=== PATIENT | female | born 1945 | race Caucasian/White ===

== ENCOUNTER 2017-03-16 11:10 | Inpatient (IN) | payer MEDICARE, MEDICAID ==
[2017-03-16 11:29] VITALS: BMI 35.3
--- NOTE | 2017-03-16 11:34 | ED PDOC ---
Arrival/HPI - General Time Seen by Provider: 03/16/17 11:21 Historian: Patient - History of Present Illness Narrative History of Present Illness (Text): 03/16/17 11:25 Dolores Connelly is a 71 year old female, whose past medical history includes hypertension and diabetes, Alzheimer's/Dementia, presents to the emergency department complaining of chest pain for the past two days. Patient reports the pain radiates to both left and right side of the chest. Patient describes the pain as chest pressure. She also states feeling tired with generalized fatigue. Patient denies shortness of breath, headache, fever, chills cough, nausea, vomiting, diarrhea, diaphoresis, jaw pain, back pain, or other complaints. Family reports that she is getting more agitated at home and are looking into fdc placement. Time/Duration: < week (2 dyas) Symptom Onset: Sudden Symptom Course: Unchanged Quality: Pressure Modifying Factors (Text): worse after eating Associated Symptoms (Text): tired, weakness in legs, and epigastric pain Past Medical History - Provider Review Nursing Documentation Reviewed: Yes Family/Social History - Physician Review Nursing Documentation Reviewed: Yes Family/Social History: Unknown Family HX Allergies/Home Meds Allergies/Adverse Reactions: Allergies No Known Allergies Allergy (Unverified 03/16/17 11:28) Home Medications: Home Meds Medication Instructions Recorded Confirmed Atorvastatin [Lipitor] 40 mg PO DAILY 03/16/17 03/16/17 Clonazepam 0.5 mg PO DAILY 03/16/17 03/16/17 Escitalopram [Lexapro] 20 mg PO DAILY 03/16/17 03/16/17 Levothyroxine [Synthroid] 25 mcg PO DAILY 03/16/17 03/16/17 Lisinopril [Zestril] 30 mg PO DAILY 03/16/17 03/16/17 Multivitamin [Multivitamins] 1 each PO DAILY 03/16/17 03/16/17 Naproxen [Naprosyn Tab] 250 mg PO BID 03/16/17 03/16/17 Perphenazine 8 mg PO DAILY 03/16/17 03/16/17 traZODone [trazodone Hydrochloride] 100 mg PO BID 03/16/17 03/16/17 Review of Systems - Review of Systems Constitutional: Fatigue. absent: Fevers Eyes: absent: Vision Changes ENT: absent: Hearing Changes Respiratory: absent: SOB, Cough, Sputum, Wheezing Cardiovascular: Chest Pain. absent: Palpitations, Calf Pain, Orthopnea, Syncope Gastrointestinal: absent: Abdominal Pain, Constipation, Diarrhea, Nausea, Vomiting Genitourinary Female: absent: Dysuria, Frequency, Hematuria Musculoskeletal: absent: Back Pain Neurological: absent: Headache Endocrine: absent: Diaphoresis Physical Exam Vital Signs Reviewed: Yes Vital Signs Temp Pulse Pulse Resp BP BP Pulse Ox 03/16/17 12:28 69 20 198/86 H 96 03/16/17 11:35 74 137/108 H 03/16/17 11:30 98.3 F 74 27 H 137/108 H 97 03/16/17 11:24 98.3 F 73 20 193/70 H 98 Temperature: Afebrile Blood Pressure: Hypertensive Pulse: Regular Respiratory Rate: Normal Appearance: Positive for: Well-Appearing, Non-Toxic, Comfortable Pain Distress: None Mental Status: Positive for: Alert and Oriented X 3 - Systems Exam Head: Present: Atraumatic, Normocephalic Pupils: Present: PERRL Extroacular Muscles: Present: EOMI Conjunctiva: Present: Normal Mouth: Present: Moist Mucous Membranes Neck: Present: Normal Range of Motion Respiratory/Chest: Present: Clear to Auscultation, Good Air Exchange. No: Respiratory Distress, Accessory Muscle Use Cardiovascular: Present: Regular Rate and Rhythm, Normal S1, S2. No: Murmurs Abdomen: Present: Normal Bowel Sounds. No: Tenderness, Distention, Peritoneal Signs Back: Present: Normal Inspection Upper Extremity: Present: Normal Inspection, NORMAL PULSES (equal bilateral radial pulses). No: Cyanosis, Edema Lower Extremity: Present: Normal Inspection. No: Edema Neurological: Present: GCS=15, CN II-XII Intact, Speech Normal Skin: Present: Warm, Dry, Normal Color. No: Rashes Psychiatric: Present: Alert, Oriented x 3, Normal Insight, Normal Concentration Medical Decision Making ED Course and Treatment: 03/16/17 11:25 Impression: 71 year old female with chest pain for the past two days that radiates to both sides of chest. Differential Diagnosis included but are not limited to: pneumonia vs. pneumothorax vs acs Plan: -- EKG -- Chest X-ray -- Labs -- Aspirin -- Reassess and disposition Progress Notes: EKG: Ordered, reviewed, and independently interpreted the EKG. Rate : 69 BPM Rhythm : NSR Interpretation : No ST-segment elevations or depressions, no T-wave inversions, normal intervals. Comparison : No previous EKG for comparison. 03/16/17 12:20 Chest X-ray: Creator : Tyson Dominguez MD FINDINGS: LUNGS: No active pulmonary disease. PLEURA: No significant pleural effusion identified, no pneumothorax apparent. CARDIOVASCULAR: Normal. OSSEOUS STRUCTURES: No significant abnormalities. VISUALIZED UPPER ABDOMEN: There is focal eventration of the left hemidiaphragm. OTHER FINDINGS: None. IMPRESSION: No active disease. 03/16/17 14:19 Patient has multiple cardiac risk factors and has never had a cardiac workup. Paient accepted by Dr. Courtney-covering medicine circulation analyst today. Family at bedside. Psychiatric consult placed due to worsening agitation at day program. - Lab Interpretations Lab Results: 03/16/17 11:45 03/16/17 11:45 Lab Results 03/16/17 11:45: Sodium 140, Potassium 3.7, Chloride 104, Carbon Dioxide 26, Anion Gap 14, BUN 18, Creatinine 0.7, Est GFR ( Amer) > 60, Est GFR (Non- Af Amer) > 60, Random Glucose 106, Calcium 9.1, Total Bilirubin 0.4, AST 26, ALT 29, Alkaline Phosphatase 115, Total Creatine Kinase 97, Troponin I < 0.01, Total Protein 7.6, Albumin 4.2, Globulin 3.4, Albumin/Globulin Ratio 1.2, Lipase 66 03/16/17 11:45: PT 11.1, INR 1.03, APTT 27.2 03/16/17 11:45: WBC 10.2, RBC 3.82, Hgb 11.8 L, Hct 34.4 L, MCV 90.1, MCH 30.9, MCHC 34.3, RDW 15.4 H, Plt Count 217, MPV 12.5 H, Gran % 63.5, Lymph % (Auto) 24.2, [place] % (Auto) 10.4 H, Eos % (Auto) 1.6, Baso % (Auto) 0.3, Gran # 6.48, Lymph # 2.5, [place] # 1.1 H, Eos # 0.2, Baso # 0.03 I have reviewed the lab results: Yes - RAD Interpretation Radiology Orders: 03/16/17 11:28 CHEST PORTABLE [RAD] Stat Reverberatory Furnace Supervisor: Radiologist - EKG Interpretation Interpreted by ED Physician: Yes Type: 12 lead EKG - Medication Orders Current Medication Orders: Enoxaparin Sodium (Lovenox) 40 mg SC DAILY [facility] PRN Reason: Protocol Last Admin: 03/16/17 14:43 Dose: 40 mg Pantoprazole Sodium (Protonix Ec Tab) 40 mg PO DAILY [facility]IN Last Admin: 03/16/17 14:43 Dose: 40 mg Discontinued Medications Aspirin (Aspirin Chewable) 324 mg PO STAT STA Stop: 03/16/17 11:30 Last Admin: 03/16/17 12:10 Dose: 324 mg - Scribe Statement The provider has reviewed the documentation as recorded by the Scribe 03/16/2017 Evangelina Lopez Provider Scribe Attestation: All medical record entries made by the Scribe were at my direction and personally dictated by me. I have reviewed the chart and agree that the record accurately reflects my personal performance of the history, physical exam, medical decision making, and the department course for this patient. I have also personally directed, reviewed, and agree with the discharge instructions and disposition. Disposition/Present on Arrival - Present on Arrival Any Indicators Present on Arrival: No - Disposition Have Diagnosis and Disposition been Completed?: Yes Diagnosis: Chest pain Disposition: HOSPITALIZED Disposition Time: 11:27 Patient Plan: Observation Condition: FAIR
[2017-03-16 12:06] LABS: BASO # 0.03 K/mm3 (0.0-2.0); BASO % 0.3 % (0.0-3.0); EOS # 0.2 (0.0-0.7); EOS % 1.6 % (1.5-5.0); GRAN # 6.48 (1.4-6.5); GRAN % 63.5 % (50.0-68.0); HEMATOCRIT 34.4 % (36.0-48.0); LYMPH # 2.5 (1.2-3.4); LYMPH % 24.2 % (22.0-35.0); MEAN CELL VOLUME 90.1 fl (80.0-105.0); MEAN CORPUSCULAR HEMOGLOBIN 30.9 pg (25.0-35.0); MEAN CORPUSCULAR HGB CONC 34.3 g/dl (31.0-37.0); MEAN PLATELET VOLUME 12.5 fl (7.0-11.0); MONO # 1.1 (0.1-0.6); MONO % 10.4 % (1.0-6.0); RED CELL DISTRIBUTION WIDTH 15.4 % (11.5-14.5); WHITE BLOOD COUNT 10.2 10^3/ul (4.5-11.0)
[2017-03-16 12:14] LABS: ALB/GLOB RATIO 1.2 (1.1-1.8); ALKALINE PHOSPHATASE 115 U/L (38-133); ALT/SGPT 29 U/L (7-56); AST/SGOT 26 U/L (15-39); BILIRUBIN,TOTAL 0.4 mg/dL (0.2-1.3); BLOOD UREA NITROGEN 18 mg/dL (7-21); CALCIUM 9.1 mg/dL (8.4-10.5); CARBON DIOXIDE 26 mmol/L (21-33); CHLORIDE 104 mmol/L (98-107); GFR AFRICAN-AMERICAN > 60; GLUCOSE,RANDOM 106 mg/dL (70-110); LIPASE 66 U/L (23-300); POTASSIUM 3.7 mmol/L (3.6-5.0); SODIUM 140 mmol/L (132-148); TOTAL PROTEIN 7.6 g/dL (5.8-8.3)
--- NOTE | 2017-03-16 12:16 | RAD ---
HISTORY: chest pain COMPARISON: No prior. FINDINGS: LUNGS: No active pulmonary disease. PLEURA: No significant pleural effusion identified, no pneumothorax apparent. CARDIOVASCULAR: Normal. OSSEOUS STRUCTURES: No significant abnormalities. VISUALIZED UPPER ABDOMEN: There is focal eventration of the left hemidiaphragm. OTHER FINDINGS: None. IMPRESSION: No active disease.
[2017-03-16 12:21] LABS: INR 1.03 (0.93-1.08); PARTIAL THROMBOPLASTIN TIME 27.2 Seconds (23.7-30.8)
[2017-03-16 12:26] LABS: TROPONIN I < 0.01 ng/mL
[2017-03-16] MEDS ORDERED: Levothyroxine 25 MCG TAB PO SCH (14:15)
[2017-03-16] MEDS: Pantoprazole 40 mg EC Tab PO SCH (14:43)
[2017-03-16] MEDS: Enoxaparin 40 mg Syringe SC SCH (14:43)
--- NOTE | 2017-03-16 15:14 | CP.PCM.HP ---
<Liya Glaser - Last Filed: 03/16/17 15:23> History of Present Illness - History of Present Illness History of Present Illness: Internal medicine H & P for Dr. Sammie Glaser, PGY-1 Pt S & E at bedside. 71 YO F w/PMH sig for HTN, DM, Alzheimer's dementia, hx nephrolithiasis, R breast CA s/p surgery admitted for HTN and Chest pain x 2 days. Pt attends adult day care where VS are monitored- pt originally sent to ED 2/2 HTN. Pt reports 1 episode of Right sided chest pain - intermittent, moderate, "pressure ", with radiating to LUE- resolved. Admits to fatigue, KWONG, R neck pain, Right sided UE shaking (remote hx of), spots in vision, blurry vision, cough, rhinorrhea, occasional diarrhea, SOB (resolved), insomonia, LE pain/ paresthesias. Denies N/V/F/C, diaphoresis. PMH: HTN, DM, Alzheimer's dementia, hx nephrolithiasis, R breast CA s/p surgery PSH: Cholecystectomy, hysterectomy, kidney stone removal, R breast surgery All: Seasonal SH: Denies ETOH, tobacco, or illicit drug use PMD: Unknown Present on Admission - Present on Admission Any Indicators Present on Admission: No History of DVT/PE: No History of Uncontrolled Diabetes: No Urinary Catheter: No Decubitus Ulcer Present: No Review of Systems - Review of Systems All systems: reviewed and no additional remarkable complaints except - Constitutional Constitutional: Fatigue, Headache, Weight Gain, Weakness. absent: Chills, Fever - EENT Eyes: Blurred Vision, Change in Vision, Spots in Vision Ears: absent: Dizziness Nose/Mouth/Throat: absent: Sore Throat - Cardiovascular Cardiovascular: Chest Pain. absent: Diaphoresis, Leg Edema, Palpitations - Respiratory Respiratory: Cough - Gastrointestinal Gastrointestinal: Diarrhea (occasional). absent: Abdominal Pain, Constipation, Nausea, Vomiting - Genitourinary Genitourinary: absent: Change in Urinary Stream - Musculoskeletal Musculoskeletal: Neck Pain, Numbness (of extremities), Tingling (of extremities) - Psychiatric Psychiatric: Abnormal Sleep Pattern (insomnia) Past Patient History - Past Social History Smoking Status: Never Smoked - CARDIAC Hx Cardiac Disorders: Yes Hx Hypertension: Yes - PULMONARY Hx Respiratory Disorders: No - NEUROLOGICAL Hx Neurological Disorder: Yes Hx Alzheimer's Disease: Yes - HEENT Hx HEENT Problems: No - RENAL Hx Chronic Kidney Disease: No - ENDOCRINE/METABOLIC Hx Endocrine Disorders: Yes Hx Diabetes Mellitus Type 2: Yes - HEMATOLOGICAL/ONCOLOGICAL Hx Blood Disorders: No - INTEGUMENTARY Hx Dermatological Problems: No - MUSCULOSKELETAL/RHEUMATOLOGICAL Hx Musculoskeletal Disorders: No - GASTROINTESTINAL Hx Gastrointestinal Disorders: Yes Hx Constipation: Yes - GENITOURINARY/GYNECOLOGICAL Hx Genitourinary Disorders: No - PSYCHIATRIC Hx Substance Use: No - SURGICAL HISTORY Hx Surgeries: Yes Hx Section: Yes (x3) Meds Allergies/Adverse Reactions: Allergies Allergy/AdvReac Type Severity Reaction Status Date / Time No Known Allergies Allergy Unverified 03/16/17 11:28 Physical Exam - Constitutional Appears: Non-toxic, No Acute Distress - Head Exam Head Exam: ATRAUMATIC, NORMAL INSPECTION, NORMOCEPHALIC - Eye Exam Eye Exam: EOMI, Normal appearance. absent: Nystagmus - ENT Exam ENT Exam: Mucous Membranes Moist, Normal Exam - Neck Exam Neck exam: Positive for: Full Rom, Normal Inspection. Negative for: Lymphadenopathy, Meningismus, Tenderness - Respiratory Exam Respiratory Exam: Clear to Auscultation Bilateral, NORMAL BREATHING PATTERN. absent: Accessory Muscle Use, Chest Wall Tenderness, Rales, Rhonchi, Wheezes, Respiratory Distress - Cardiovascular Exam Cardiovascular Exam: REGULAR RHYTHM, +S1, +S2 - GI/Abdominal Exam GI & Abdominal Exam: Normal Bowel Sounds, Soft. absent: Tenderness - Extremities Exam Extremities exam: Positive for: normal inspection. Negative for: tenderness - Neurological Exam Neurological exam: Alert, CN II-XII Intact - Psychiatric Exam Psychiatric exam: Normal Affect, Normal Mood - Skin Skin Exam: Dry, Intact, Normal Color, Warm Results - Vital Signs Recent Vital Signs: Last Vital Signs Temp 98.3 F 03/16/17 11:30 Pulse 70 03/16/17 14:59 Resp 20 03/16/17 14:59 BP 166/78 H 03/16/17 14:59 Pulse Ox 98 03/16/17 14:59 - Labs Result Diagrams: 03/16/17 11:45 03/16/17 11:45 Assessment & Plan - Assessment and Plan (Free Text) Assessment: 71 YO F w/PMH sig for HTN, DM, Alzheimer's dementia, hx nephrolithiasis, R breast CA s/p surgery admitted for HTN and Chest pain x 2 days, currently CP resolved, continues with symptoms of HTN - KWONG, vision changes Plan: Chest pain EKG -NSR CXR - NAD Trops neg x 1 FU serial trops/EKGs FU A1c FU CKP Cont home meds: Lipitor Given ASA x 1 Cardiology consulted HTN BP improved - 166/74 Cont home med: Lisinopril clonidine PRN Monitor DM ISS Accuchecks Diabetic/HHD Alzheimer's dementia Psych consulted Hypothyroidism FU FT4 FU TSH Cont home med: Synthyroid Depression/insomnia Cont home med: Lexapro, trazodone, clonazepam GI/DVT ppx Protonix Lovenox TEDs SCDs Dispo Admit to tele VS as per protocol OOBTC PT HHD/Mod-CCHO diet Will DW attending Jailyn, PGY-1 - Date & Time Date: 03/16/17 Time: 15:13 Decision To Admit - Pt Status Changed To: Hospital Disposition Of: Observation - . Bed Request Type: Telemetry Admitting Physician: Byron Courtney <Byron Courtney - Last Filed: 04/08/17 22:12> Results - Vital Signs Recent Vital Signs: Last Vital Signs Temp 98.2 F 03/20/17 07:40 Pulse 66 03/20/17 07:40 Resp 20 03/20/17 07:40 BP 116/69 03/20/17 10:22 Pulse Ox 95 03/20/17 07:40 - Labs Result Diagrams: 03/19/17 07:40 03/19/17 07:40 Attending/Attestation - Attestation I have personally seen and examined this patient.: Yes I have fully participated in the care of the patient.: Yes I have reviewed all pertinent clinical information: Yes
[2017-03-16 16:31] LABS: CHOLESTEROL 90 mg/dL (130-200)
--- NOTE | 2017-03-16 16:36 | CARD ---
APPROVED REPORT EKG Measurement Heart [id number] <Conclusion> Normal sinus rhythm Normal ECG
[2017-03-16 16:45] LABS: TROPONIN I < 0.01 ng/mL
[2017-03-16 17:08] LABS: FREE T4 1.2 ng/dL (0.78-2.19); T4 7.8 ug/dL (5.5-11.0)
[2017-03-16 17:21] LABS: THYROID STIMULATING HORMONE 2.74 mIU/mL (0.46-4.68)
[2017-03-16] MEDS: Insulin Reg-LOW-Coverage SC SCH ×2 (17:40→21:27)
[2017-03-16 21:39] LABS: TROPONIN I < 0.01 ng/mL
[2017-03-16] MEDS ORDERED: Pneumococcal 23-Valent Vaccine IM ONE (21:47)
[2017-03-17 01:06] LABS: TROPONIN I < 0.01 ng/mL
--- NOTE | 2017-03-17 04:25 | CON ---
DATE: 03/16/2017 HISTORY OF PRESENT ILLNESS: The patient is a 71-year-old woman who presents with agitation. The patient has a long history of Alzheimer's with dementia. She was noted by her caretakers to be increasingly agitated. The patient's past medical history besides Alzheimer's reveals a history of hypertension and hypercholesterolemia with borderline diabetes mellitus. No previous cardiac history is noted. The patient admits to diffuse body aches. SOCIAL HISTORY: Denies smoking. REVIEW OF SYSTEMS: Besides agitation includes atypical chest pain without shortness of breath. PHYSICAL EXAMINATION: VITAL SIGNS: Blood pressure 166/78, heart rate in the 70s. NECK: Negative JVD. LUNGS: Without rales. HEART: S1, S2. EXTREMITIES: Without edema. EKG is unremarkable. Hemoglobin is 11.8. Chemistries revealed a first troponin to be negative. IMPRESSION: 1. Increasing agitation. 2. Atypical chest pain. 3. Hypertension. 4. Hypercholesterolemia. 5. Questionable history of diabetes mellitus. Given these findings, there is no evidence for acute coronary syndrome. Her blood pressure is better on clonidine. Psychiatry has been consulted for adjusting her dementia and Alzheimer's medications. Ferny Marquez MD
[2017-03-17] MEDS: Levothyroxine 25 MCG TAB PO SCH (05:08)
--- NOTE | 2017-03-17 07:36 | CP.PCM.PN ---
Addendum entered and electronically signed by Liya Glaser DO 03/19/17 12:36: Physical Exam - Constitutional Appears: Non-toxic, No Acute Distress - Head Exam Head Exam: ATRAUMATIC, NORMAL INSPECTION, NORMOCEPHALIC - Eye Exam Eye Exam: EOMI, Normal appearance. absent: Nystagmus - ENT Exam ENT Exam: Mucous Membranes Moist, Normal Exam - Neck Exam Neck exam: Positive for: Full Rom, Normal Inspection. Negative for: Lymphadenopathy, Meningismus, Tenderness - Respiratory Exam Respiratory Exam: Clear to Auscultation Bilateral, NORMAL BREATHING PATTERN. absent: Accessory Muscle Use, Chest Wall Tenderness, Rales, Rhonchi, Wheezes, Respiratory Distress - Cardiovascular Exam Cardiovascular Exam: REGULAR RHYTHM, +S1, +S2 - GI/Abdominal Exam GI & Abdominal Exam: Normal Bowel Sounds, Soft. absent: Tenderness - Extremities Exam Extremities exam: Positive for: normal inspection. Negative for: tenderness - Neurological Exam Neurological exam: Alert, Awake, CN II-XII Intact; shaking of RUE decreased - Psychiatric Exam Psychiatric exam: Normal Affect, Normal Mood - Skin Skin Exam: Dry, Intact, Normal Color, Warm Original Note: <Liya Glaser - Last Filed: 03/17/17 09:25> Subjective - Date & Time of Evaluation Date of Evaluation: 03/17/17 Time of Evaluation: 06:30 - Subjective Subjective: Internal medicine progress note for Dr. Sammie Glaser, PGY-1 Pt S & E at bedside. Pt reports KWONG overnight, continues with R sided neck pain, now with concerns regarding skin changes over B/L LE. Denies N/V/F/C, SOB, CP, ab pain. Tolerating diet. Objective - Vital Signs/Intake and Output Vital Signs (last 24 hours): Temp Pulse Resp BP Pulse Ox 97.8 F 65 20 178/79 H 98 03/17/17 05:30 03/17/17 05:30 03/17/17 05:30 03/17/17 05:30 03/17/17 05:30 Intake and Output: 03/17/17 03/17/17 06:59 18:59 Intake Total 120 Balance 120 - Medications Medications: Current Medications Acetaminophen (Tylenol 325mg Tab) 650 mg PO Q6H PRN PRN Reason: Pain, moderate (4-7) Last Admin: 03/17/17 05:21 Dose: 650 mg Aspirin (Ecotrin) 81 mg PO DAILY [facility] Atorvastatin Calcium (Lipitor) 40 mg PO DIN [facility] Last Admin: 03/16/17 21:26 Dose: 40 mg Clonazepam (Klonopin) 0.5 mg PO DAILY [facility] PRN Reason: Protocol Clonidine HCl (Catapres) 0.1 mg PO Q6H PRN PRN Reason: Systolic Blood Pressure Last Admin: 03/17/17 05:20 Dose: 0.1 mg Enoxaparin Sodium (Lovenox) 40 mg SC DAILY [facility] PRN Reason: Protocol Last Admin: 03/16/17 14:43 Dose: 40 mg Escitalopram Oxalate (Lexapro) 20 mg PO DAILY [facility] Insulin Human Regular (Humulin R Low) 0 units SC ACHS [facility] PRN Reason: Protocol Last Admin: 03/16/17 21:27 Dose: Not Given Levothyroxine Sodium (Synthroid) 25 mcg PO 0600 [facility] Last Admin: 03/17/17 05:08 Dose: 25 mcg Losartan Potassium (Cozaar) 100 mg PO DAILY [facility] Metoprolol Tartrate (Lopressor) 25 mg PO BRKDIN [facility] Multivitamins (Thera Tab) 1 tab PO DAILY [facility] Pantoprazole Sodium (Protonix Ec Tab) 40 mg PO DAILY [facility] Last Admin: 03/16/17 14:43 Dose: 40 mg Perphenazine (Perphenazine) 8 mg PO DAILY [facility] Trazodone HCl (Desyrel) 100 mg PO DAILY [facility] - Labs Labs: PT 11.1 Seconds (9.9-11.8) 03/16/17 11:45 INR 1.03 (0.93-1.08) 03/16/17 11:45 APTT 27.2 Seconds (23.7-30.8) 03/16/17 11:45 Assessment and Plan - Assessment and Plan (Free Text) Assessment: 71 YO F w/PMH sig for HTN, DM, Alzheimer's dementia, hx nephrolithiasis, R breast CA s/p surgery admitted for HTN and Chest pain x 2 days, denies CP overnight, KWONG overnight. Plan: Chest pain- resolved No EKG changes Trops neg x 4 A1c 6.1 CKP WNL FU Folate FU B12 FU UDS Cont home meds: Lipitor Cardiology following- likely not ACS HTN HTN overnight- given clonidine x 1 Cont home med: Lisinopril clonidine PRN Monitor DM ISS Accuchecks Diabetic/HHD Alzheimer's dementia Psych following Hypothyroidism FT4 1.2 TSH 2.74 T4 7.8 Cont home med: Synthyroid Depression/insomnia Cont home med: Lexapro, trazodone, clonazepam GI/DVT ppx Protonix Lovenox TEDs SCDs Dispo OOBTC PT HHD/Mod-CCHO diet Will DW attending Jailyn, PGY-1 <Byron Courtney U - Last Filed: 04/08/17 22:13> Objective - Vital Signs/Intake and Output Vital Signs (last 24 hours): Temp Pulse Resp BP Pulse Ox 98.2 F 66 20 116/69 95 03/20/17 07:40 03/20/17 07:40 03/20/17 07:40 03/20/17 10:22 03/20/17 07:40 - Labs Labs: 03/19/17 07:40 03/19/17 07:40 PT 11.1 Seconds (9.9-11.8) 03/16/17 11:45 INR 1.03 (0.93-1.08) 03/16/17 11:45 APTT 27.2 Seconds (23.7-30.8) 03/16/17 11:45 Attending/Attestation - Attestation I have personally seen and examined this patient.: Yes I have fully participated in the care of the patient.: Yes I have reviewed all pertinent clinical information, including history, physical exam and plan: Yes
--- NOTE | 2017-03-17 08:05 | HP ---
HISTORY OF PRESENT ILLNESS: The patient is a 71-year-old [place]ese-speaking obese female who was brought into the emergency room by the EMS, [facility]. The patient reported chest pain radiating to left arm and neck pain. The patient was sent from the day care [place] today. According to the ER physician evaluation, the patient came to the emergency room by ambulance complaining of chest pain for 2 days, radiating to the left and right side of the chest. Described chest pressure with generalized fatigue. REVIEW OF SYSTEMS: A 13 System review was done, pertinent positive and negative dictated above. CODE STATUS: FULL CODE. HEIGHT: 4 feet 11 inches. WEIGHT: 175. BMI: 35. LIVING WILL/ADVANCE DIRECTIVE: None. HOME MEDICATIONS: 1. Multivitamin 1 tablet daily. 2. Trazodone 100 mg twice a day. 3. Naprosyn 250 mg twice a day. 4. Perphenazine 8 mg daily. 5. Klonopin 0.5 mg daily. 6. Lipitor 40 mg daily. 7. Zestril 30 mg daily/. 8. Synthroid 25 mcg daily. 9. Lexapro 20 mg daily. SOCIAL HISTORY: Negative for substance abuse. Negative for alcohol abuse. Negative for smoking. Negative for communicable transmissible disease. MENSTRUAL HISTORY: Postmenopausal. PAST MEDICAL AND SURGICAL HISTORY: History of questionable insomnia, history of depression, history of anxiety, history of dyslipidemia, history of hypertension, history of hypothyroidism. Patient's past medical history is also significant for hypertension, history of type 2 diabetes, history of constipation, history of Alzheimer's disease, history of x3. PHYSICAL EXAMINATION: GENERAL: The patient was seen in room 262, bed 2. The patient is seen lying in the bed. VITAL SIGNS: T-max is 98.3. Telemetry shows sinus rhythm, heart rate 69-74, blood pressure 193/70, 137/108, 198/86 166/76 and 166/84, respirations 20. O2 sat is 97%-98%. HEENT: Head examination normocephalic and atraumatic. Shows pink conjunctivae. Anicteric sclerae. No oropharyngeal lesion. No neck rigidity. CHEST: Kyphosis. LUNGS: Shows no rales, crackles or wheezing. CARDIOVASCULAR: S1 and S2, regular rhythm. ABDOMEN: Soft, protuberant. Positive bowel sound. GENITALIA: Female. RECTAL: Deferred. EXTREMITIES: Shows no pitting edema. No calf tenderness and no Angelo's signs. NEUROLOGIC: The patient is alert, awake and responsive. Is able to say her name, able to follow simple commands. MUSCULOSKELETAL: Shows an elevated body mass index. DIAGNOSTIC DATA: The patient's diagnostic data was reviewed. The patient was seen and examined in room 262 and bed 1. The patient has been moved from her original room. DIAGNOSTICS: WBCs 10.2, hemoglobin/hematocrit 11.8 and 34.4 and platelet 217. PT/PTT is normal. Chemistry shows random glucose of 106 and 102. LFTs are normal. Troponin is negative. Cholesterol 90, triglyceride 34, LDL less than 30, HDL 55. TSH 2.74 and thyroxine 7.8. The patient's chest x-ray was reported to be no active disease. EKG shows normal sinus rhythm rate baseline artifact. No old EKG available for comparison. The patient was seen in the emergency room by the ER physician. The patient was given Lovenox 40 subcutaneous. The patient was given Protonix. Aspirin 324 was given. The patient denies to be hospitalized. IMPRESSION: 1. Chest pain, etiology undetermined. 2. Transiently uncontrolled hypertension. 3. History of Alzheimer's dementia. 4. History of depression, history of insomnia, history of hypothyroidism, history of hypertension, and history of dyslipidemia. 5. Normocytic anemia. 6. History of obesity. 7. History of anxiety. PLAN: At this time, the patient has been ordered serial labs. The patient has been ordered hemoglobin A1c, cardiology consultation has been requested. The patient has been ordered a psychiatry consultation from the ER. The patient is started on Cozaar 50 mg daily, Desyrel 100 mg daily, aspirin 81 mg daily, regular insulin sliding scale coverage, Klonopin 0.5 mg daily, Lexapro 20 mg daily, Lipitor 40 mg daily, Lopressor 25 mg twice a day, Lovenox 40 mg subcutaneous daily, perphenazine is resumed at 8 mg daily, Protonix 40 mg daily, Synthroid 25 mcg daily, Tylenol p.r.n. Repeat EKG. Heart healthy diet, out of bed, GABINO stockings has been ordered. The patient has been ordered fingerstick blood sugar. SCDs ordered. Physical therapy evaluation ordered. At present, the patient is seen in room 262, bed 1. The patient's further management will be dependent upon the patient's clinical condition, hemodynamic status and as per the patient response to therapeutic intervention, as per the patient's diagnostic test results and as per recommendation by cardiology after evaluation. Dictated and electronically signed, not read. Byron Courtney MD
[2017-03-17] MEDS: Insulin Reg-LOW-Coverage SC SCH ×3 (08:32→16:10)
[2017-03-17] MEDS ORDERED: Non Formulary Medication (Multivitamin [Multivitamins] 1 EACH) PO SCH (10:00)
--- NOTE | 2017-03-17 10:05 | CT ---
PROCEDURE: CT HEAD WITHOUT CONTRAST. HISTORY: ???dementia COMPARISON: None available. TECHNIQUE: Axial computed tomography images were obtained through the head/brain without intravenous contrast. Radiation dose: Total exam DLP = 756 mGy-cm. This CT exam was performed using one or more of the following dose reduction techniques: Automated exposure control, adjustment of the mA and/or kV according to patient size, and/or use of iterative reconstruction technique. FINDINGS: HEMORRHAGE: No intracranial hemorrhage. BRAIN: No mass effect or edema. No atrophy or chronic microvascular ischemic changes. VENTRICLES: Unremarkable. No hydrocephalus. CALVARIUM: Unremarkable. PARANASAL SINUSES: Unremarkable as visualized. No significant inflammatory changes. MASTOID AIR CELLS: Unremarkable as visualized. No inflammatory changes. OTHER FINDINGS: None. IMPRESSION: No acute findings
[2017-03-17] MEDS: Enoxaparin 40 mg Syringe SC SCH (11:05)
[2017-03-17] MEDS: Pantoprazole 40 mg EC Tab PO SCH (11:05)
[2017-03-17] MEDS: Multivitamin Therapeutic Tab PO SCH (11:06)
[2017-03-17] MEDS: POLYETHYLENE GLYCOL 3350 17 GM/Dose PACKET PO SCH ×2 (11:06→17:21)
--- NOTE | 2017-03-17 11:42 | CARD ---
APPROVED REPORT EKG Measurement Heart [id number] ID [id number] <Conclusion> Normal sinus rhythm Normal ECG
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
[2017-03-17 17:29] LABS: FOLATE > 20.0 ng/mL
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
--- NOTE | 2017-03-17 21:18 | PN ---
DATE: 03/17/2017 CARDIOLOGY FOLLOWUP SUBJECTIVE: The patient denies chest pain. PHYSICAL EXAMINATION: VITAL SIGNS: Blood pressure 109/83 and heart rates in the 50s. NECK: Negative JVD. HEART: S1 and S2. LUNGS: Without rales. EXTREMITIES: Without edema. LABORATORY DATA: Troponins are negative x3. The hemoglobin was not drawn today. Echocardiogram reveals an ejection fraction of 50%-55%. No LV outflow obstruction is noted. IMPRESSION: 1. Atypical chest pain. 2. No evidence for acute coronary syndrome. 3. Hypercholesterolemia. 4. Hypertension. 5. Questionable history of diabetes mellitus. 6. History of Alzheimer's. Given these findings, there is no evidence for acute coronary syndrome. We will discontinued telemetry today. We will arrange for an outpatient stress test. Ferny Marquez MD
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
[2017-03-18] MEDS: Levothyroxine 25 MCG TAB PO SCH (05:19)
[2017-03-18] MEDS: Insulin Reg-LOW-Coverage SC SCH ×4 (08:33→21:41)
--- NOTE | 2017-03-18 09:23 | CARD ---
APPROVED REPORT EKG Measurement Heart [id number] <Conclusion> Marked sinus bradycardia Abnormal ECG
[2017-03-18] MEDS: Multivitamin Therapeutic Tab PO SCH (10:55)
[2017-03-18] MEDS: Enoxaparin 40 mg Syringe SC SCH (10:55)
[2017-03-18] MEDS: Pantoprazole 40 mg EC Tab PO SCH (10:55)
[2017-03-18] MEDS: POLYETHYLENE GLYCOL 3350 17 GM/Dose PACKET PO SCH ×2 (10:56→20:20)
[2017-03-18 11:30] LABS: BASO # 0.03 K/mm3 (0.0-2.0); BASO % 0.3 % (0.0-3.0); EOS # 0.2 (0.0-0.7); EOS % 2.1 % (1.5-5.0); GRAN # 5.17 (1.4-6.5); GRAN % 59.7 % (50.0-68.0); HEMATOCRIT 37.5 % (36.0-48.0); LYMPH # 2.5 (1.2-3.4); MEAN CELL VOLUME 89.7 fl (80.0-105.0); MEAN CORPUSCULAR HEMOGLOBIN 30.6 pg (25.0-35.0); MEAN CORPUSCULAR HGB CONC 34.1 g/dl (31.0-37.0); MEAN PLATELET VOLUME 11.5 fl (7.0-11.0); MONO # 0.8 (0.1-0.6); MONO % 8.9 % (1.0-6.0); PLATELET COUNT 209 10^3/uL (120.0-450.0); RED CELL DISTRIBUTION WIDTH 15.2 % (11.5-14.5); RETIC% 1.19 % (0.5-1.5); WHITE BLOOD COUNT 8.7 10^3/ul (4.5-11.0)
[2017-03-18 11:46] LABS: IRON 77 ug/dL (45-180)
--- NOTE | 2017-03-18 13:09 | CP.PCM.PN ---
<Arnold Gabriel - Last Filed: 03/18/17 13:05> Subjective - Date & Time of Evaluation Date of Evaluation: 03/18/17 Time of Evaluation: 12:00 - Subjective Subjective: IM Progress Note for Dr. Courtney Pt was seen and examined at bedside. No acute complaints at this time. No acute or adverse events overnight as per nursing staff. Pt denied fever, chills, sob, chest pains, n/v/d/c or urinary symptoms. Objective - Vital Signs/Intake and Output Vital Signs (last 24 hours): Temp Pulse Resp BP Pulse Ox 98.2 F 62 20 134/90 95 03/18/17 00:01 03/18/17 00:01 03/18/17 00:01 03/18/17 00:01 03/18/17 00:01 Intake and Output: 03/18/17 03/18/17 06:59 18:59 Intake Total 480 Balance 480 - Medications Medications: Current Medications Acetaminophen (Tylenol 325mg Tab) 650 mg PO Q6H PRN PRN Reason: Pain, moderate (4-7) Last Admin: 03/17/17 21:53 Dose: 650 mg Aspirin (Ecotrin) 81 mg PO DAILY [facility] Last Admin: 03/18/17 10:55 Dose: 81 mg Atorvastatin Calcium (Lipitor) 40 mg PO DIN [facility] Last Admin: 03/17/17 17:21 Dose: 40 mg Clonazepam (Klonopin) 0.5 mg PO DAILY [facility] PRN Reason: Protocol Last Admin: 03/18/17 10:55 Dose: 0.5 mg Clonidine HCl (Catapres) 0.1 mg PO Q6H PRN PRN Reason: Systolic Blood Pressure Last Admin: 03/17/17 05:20 Dose: 0.1 mg Donepezil HCl (Aricept) 5 mg PO HS [facility]IN Enoxaparin Sodium (Lovenox) 40 mg SC DAILY [facility] PRN Reason: Protocol Last Admin: 03/18/17 10:55 Dose: 40 mg Escitalopram Oxalate (Lexapro) 20 mg PO DAILY [facility] Last Admin: 03/17/17 11:06 Dose: 20 mg Insulin Human Regular (Humulin R Low) 0 units SC ACHS [facility] PRN Reason: Protocol Last Admin: 03/18/17 08:33 Dose: Not Given Levothyroxine Sodium (Synthroid) 25 mcg PO 0600 [facility] Last Admin: 03/18/17 05:19 Dose: 25 mcg Losartan Potassium (Cozaar) 100 mg PO DAILY [facility] Last Admin: 03/18/17 10:55 Dose: 100 mg Metoprolol Tartrate (Lopressor) 25 mg PO BRKDIN [facility] Last Admin: 03/18/17 10:55 Dose: 25 mg Multivitamins (Thera Tab) 1 tab PO DAILY [facility] Last Admin: 03/18/17 10:55 Dose: 1 tab Pantoprazole Sodium (Protonix Ec Tab) 40 mg PO DAILY [facility] Last Admin: 03/18/17 10:55 Dose: 40 mg Perphenazine (Perphenazine) 8 mg PO DAILY [facility] Last Admin: 03/17/17 11:06 Dose: 8 mg Polyethylene Glycol (Miralax) 17 gm PO BID [facility] Last Admin: 03/18/17 10:56 Dose: 17 gm Trazodone HCl (Desyrel) 100 mg PO HS [facility] Last Admin: 03/17/17 21:27 Dose: 100 mg - Labs Labs: 03/18/17 11:20 PT 11.1 Seconds (9.9-11.8) 03/16/17 11:45 INR 1.03 (0.93-1.08) 03/16/17 11:45 APTT 27.2 Seconds (23.7-30.8) 03/16/17 11:45 - Constitutional Appears: No Acute Distress - Head Exam Head Exam: ATRAUMATIC, NORMAL INSPECTION, NORMOCEPHALIC - Eye Exam Eye Exam: EOMI, Normal appearance, PERRL Pupil Exam: NORMAL ACCOMODATION, PERRL - ENT Exam ENT Exam: Mucous Membranes Moist, Normal Exam - Neck Exam Neck Exam: Full ROM, Normal Inspection. absent: Lymphadenopathy - Respiratory Exam Respiratory Exam: Clear to Ausculation Bilateral, NORMAL BREATHING PATTERN - Cardiovascular Exam Cardiovascular Exam: REGULAR RHYTHM, +S1, +S2. absent: Murmur - GI/Abdominal Exam GI & Abdominal Exam: Soft, Normal Bowel Sounds. absent: Tenderness - Extremities Exam Extremities Exam: Full ROM, Normal Capillary Refill, Normal Inspection. absent : Joint Swelling, Pedal Edema - Neurological Exam Neurological Exam: Alert, Awake, CN II-XII Intact, Oriented x3 - Psychiatric Exam Psychiatric exam: Normal Affect, Normal Mood - Skin Skin Exam: Dry, Intact, Normal Color, Warm Assessment and Plan - Assessment and Plan (Free Text) Assessment: 71 F with a pMHx of HTN, DM, alzheimers dementia and R breast Ca s/p resection admitted for uncontrolled HTN and Chest pain. Chest pain- resolved No EKG changes Trops neg x 4 A1c 6.1 CKP WNL folate b12 wnl Cont home meds: Lipitor Cardiology following, continue medical management HTN Stable Cont home med: Lisinopril, lopressor clonidine PRN Monitor DM ISS Accuchecks Diabetic/HHD Alzheimer's dementia Psych following, meds reviewed EEG completed, Neuro following Hypothyroidism FT4 1.2 TSH 2.74 T4 7.8 Cont home med: Synthyroid Depression/insomnia Cont home med: Lexapro, trazodone, clonazepam GI/DVT ppx reviewed Protonix Lovenox Seen Reviewed and Discussed with Attending <Byron Courtney - Last Filed: 04/08/17 22:13> Objective - Vital Signs/Intake and Output Vital Signs (last 24 hours): Temp Pulse Resp BP Pulse Ox 98.2 F 66 20 116/69 95 03/20/17 07:40 03/20/17 07:40 03/20/17 07:40 03/20/17 10:22 03/20/17 07:40 - Labs Labs: 03/19/17 07:40 03/19/17 07:40 PT 11.1 Seconds (9.9-11.8) 03/16/17 11:45 INR 1.03 (0.93-1.08) 03/16/17 11:45 APTT 27.2 Seconds (23.7-30.8) 03/16/17 11:45 Attending/Attestation - Attestation I have personally seen and examined this patient.: Yes I have fully participated in the care of the patient.: Yes I have reviewed all pertinent clinical information, including history, physical exam and plan: Yes
--- NOTE | 2017-03-18 14:59 | MRI ---
PROCEDURE: MRI BRAIN WITHOUT CONTRAST HISTORY: dementia COMPARISON: None. TECHNIQUE: Multiplanar, multisequence MR images of the brain were obtained without intravenous contrast enhancement. FINDINGS: HEMORRHAGE: None DWI: No evidence of an acute or early subacute infarction. BRAIN PARENCHYMA: No mass effect or edema. Mild atrophy VENTRICLES: Unremarkable. No hydrocephalus. CRANIUM: Unremarkable. ORBITS: Grossly unremarkable. PARANASAL SINUSES/MASTOIDS: Clear VASCULAR SYSTEM: Skull base flow voids intact. OTHER FINDINGS: None. IMPRESSION: Unremarkable non contrast enhanced MRI of the brain.
--- NOTE | 2017-03-18 19:22 | PN ---
The patient was followed up today. The patient was started on oral psychotropic medications. This commercial real estate underwriter had prolonged conversation with the patient's [id number] yesterday and today with the patient's first son. He is power of probate paralegal, but no legal document was brought in. The patient presented to be alert, oriented, emotional, and tearful. The patient does not want to go to the intermediate. The patient wants to go back home. As per the patient's son, the patient suffered from mental illness for years, was followed up by psychiatric mobile team in [place]. The patient was forgetful at home. The patient was also mildly paranoid, but there is no physical aggression or agitation. The patient wants to go back home, refused to go to the intermediate. PHYSICAL EXAMINATION VITAL SIGNS: This commercial real estate underwriter reviewed vital signs. Vital signs seem to be stable. Temperature is 98.2, pulse 62, blood pressure 134/90, respirations 20, oxygen saturation 95%. MEDICATIONS: Reviewed; Tylenol, aspirin, Lipitor, Klonopin 0.5 mg daily, Catapres 0.1 mg q.6 hours as needed, Aricept 5 mg p.o. daily at the nighttime, Lovenox, Lexapro 20 mg daily, Humulin, Synthroid, Cozaar, Lopressor, multivitamins, Protonix, perphenazine which will be increased to 8 mg twice a day. The patient is also on Miralax and trazodone 100 mg but was on 200 mg at the nighttime. LABORATORY DATA: Labs reviewed. Most recent was from today. No abnormalities. MENTAL STATUS EXAMINATION: The patient appears to be alert, anxious, tearful, intermittent eye contact. Speech was soft, low volume. Mood described as depressed. Affect was constricted but more reactive. Mood congruent. Thought process circumstantial. Thought content, the patient denies visual, auditory, or tactile hallucinations, denied paranoid ideation, but obviously the patient is mildly disorganized in her thoughts. Insight and judgment are improving. Impulses are well controlled. IMPRESSION: As per history, the patient has schizoaffective disorder versus schizophrenia. As per report, the patient has history of dementia. Medical team called for neurology evaluation. PLAN: Continue current management. Trilafon will be increased to 8 mg twice a day. The patient will be continued on oral psychotropic medications. The patient's family needs to bring legal papers if they want to be the one who is participating in discharge plan for this patient. Thank you very much for letting me to participate in care of your patient. Should you have any questions, give me a call back. Kourtney George MD
--- NOTE | 2017-03-18 22:25 | CON ---
NEUROLOGY CONSULTATION DATE: 03/18/2017 REASON FOR CONSULTATION: Dementia. HISTORY OF PRESENT ILLNESS: The patient is a 71-year-old female who has been asked for evaluation of mental status. The patient is admitted in the hospital with chest pain. The patient was noted to be confused and forgetful. As per the patient, she does forget a lot of things. She places things and forgets where she places them. This is going on a lot. The patient has also seen a psychiatrist in the past and has been taking perphenazine, Lexapro and trazodone at the movement. As per patient, she was seeing a psychiatrist for a while. She was unable to give me a name. REVIEW OF SYSTEMS: Denies any headache, dizziness, positive for mild chest pain, denies any shortness of breath, abdominal pain, constipation, diarrhea, dysuria, polyuria, cough, and sputum production. PAST MEDICAL HISTORY: Includes hypertension and diabetes mellitus. MEDICATIONS: Her current medications include Catapres, Cozaar, trazodone, aspirin, clonazepam, insulin, Lexapro, Lipitor, Lopressor, Lovenox, Miralax, perphenazine, Protonix, Synthroid , multivitamins and Tylenol. ALLERGIES: NO KNOW DRUG ALLERGIES. SOCIAL HISTORY: Denies smoking, use of alcohol, or illicit drugs. FAMILY HISTORY: Reviewed and noncontributory to the case. PHYSICAL EXAMINATION GENERAL: The patient is an elderly female, lying on the bed, in no acute distress. VITAL SIGNS: Her blood pressure is 134/90, heart rate is 62 per minute, breathing at the rate of 16 per minute, and temperature is 98.2 degrees Fahrenheit. HEENT: Head is normocephalic and atraumatic. NECK: Supple. There are no carotid bruits. LUNGS: Clear. CARDIOPULMONARY: S1 and S2 audible. No murmurs. ABDOMEN: Soft and nontender. Bowel sounds are present. NEUROLOGIC: Mental status. The patient is awake, alert and oriented to place, [facility], year is 2016, month is September. She does not know the name of the President, when I asked her as well as the pervious President, she said Didier. Her memory and cognition are impaired. Cranial nerve exam, pupils are 3 mm bilaterally, reactive to light. Visual gomez are full. Extraocular movements are intact. There is no facial asymmetry. Palate is upgoing bilaterally and tongue is midline. Motor examination; tone shows positive mild cogwheeling in both upper extremities. Power is 5/5 bilaterally in all extremities, reflexes+2 and symmetrical. Plantars downgoing bilaterally. Cerebellar Examination: [id number] shows no dysmetria. Sensory Examination: Intact to soft touch and pin prick. The gait is deferred at the moment. LABORATORY DATA: Reviewed shows WBC of 10.2, hemoglobin of 11.8, hematocrit 34.4 and platelets of 217. Sodium is 140, potassium 3.7, chloride 104, carbon dioxide content of 26, BUN of 18, creatinine 0.7 and glucose of 106. Her vitamin B12 level is 390. Her T4 and TSH are within normal limits. IMPRESSION: 1. It appears that the patient dose have dementia likely Alzheimer's type. 2. The patient does have Parkinson in future, which may have been secondary to her prolonged use of antipsychotic medications. RECOMMENDATIONS: 1. The patient to have MRI of the brain without contrast. 2. The patient to have an electroencephalogram. 3. The patient to be started on Aricept 5 mg once day. 4. The patient to have physical therapy for her gait and balance. 5. The patient needs to be followed up as outpatient and will further adjust patient's medications. Thank you for the opportunity to participate in the care of this patient. Marla Sandoval MD
--- NOTE | 2017-03-19 02:52 | PN ---
DATE: 03/18/2017 LOCATION: The patient was seen in room 572, bed 2. SUBJECTIVE: The patient's vital signs, diagnostic data, imaging studies, and recommendation and evaluation by all consultation reviewed. For further details of the patient's progress note and further details, refer to the progress note of the medical attendant from today. IMPRESSION AND PLAN: 1. Chest pain, atypical. 2. Uncontrolled hypertension. 3. Anxiety disorder. 4. Transient hypoxemia. 5. Mild normocytic anemia. 6. Questionable diabetes with prediabetes and hemoglobin A1c of 6.1. 7. Obesity with elevated body mass index of 34.5. 8. Left hemidiaphragm focal eventration. 9. Sinus bradycardia. 10. History of hypothyroidism. 11. Paranoia. 12. Schizoaffective disorder versus schizophrenia. 13. History of Alzheimer's dementia. 14. History of psychiatric inpatient hospitalization. 15. Questionable paranoid disorder. 16. History of depression. 17. History of dementia. 18. Depression. 19. Constipation. 20. Hypothyroidism. 1. Chest pain, etiology undetermined. 2. Transiently uncontrolled hypertension. 3. History of Alzheimer's dementia. 4. History of depression, history of insomnia, history of hypothyroidism, history of hypertension, and history of dyslipidemia. 5. Normocytic anemia. 6. History of obesity. 7. History of anxiety. 1. Chest pain, etiology undetermined. 2. Uncontrolled hypertension. 3. Possible anxiety disorder. 4. Mild normocytic anemia. 5. Prediabetes. 6. Left hemidiaphragm eventration. 7. History of dyslipidemia. 8. History of hypertension. 9. History of type II diabetes mellitus. 10. History of constipation. 11. History of gait dysfunction. 12. History of Alzheimer's dementia. 13. History of depression. 1. Chest pain, etiology undetermined. 2. Transiently uncontrolled hypertension. 3. History of Alzheimer's dementia. 4. History of depression, history of insomnia, history of hypothyroidism, history of hypertension, and history of dyslipidemia. 5. Normocytic anemia. 6. History of obesity. 7. History of anxiety. CURRENT MEDICATIONS: 1. Aricept 5 mg h.s. 2. Clonidine 0.1 mg q.6 p.r.n. 3. Cozaar 100 mg daily. 4. Trazodone 100 mg h.s. 5. Aspirin 81 mg daily. 6. Humulin low-dose sliding scale coverage plan. 7. Klonopin 0.5 mg daily. 8. Lexapro 20 mg daily. 9. Lipitor 40 mg daily. 10. Lopressor will be decreased to 25 mg once a day due to bradycardia. 11. The patient is on Lovenox 40 mg subcu daily for DVT prophylaxis. 12. MiraLax 17 g twice a day. 13. The patient's perphenazine is increased to 8 mg twice a day by the Psychiatry. 14. Protonix 40 mg daily. 15. Synthroid 25 mcg daily. 16. Multivitamin 1 tablet daily. 17. Tylenol p.r.n. PLAN: At this time, the patient has been seen by on consult with Cardiology, Neurology, and Psychiatry. The patient's case referred to case management for discharge planning as per recommendation by the psychiatrist, Dr. George and the family meeting with the psychiatrist, the patient's family is looking for long-term placement, but the patient is not interested in long-term placement and wants to go home. The patient's case is referred for TCU. Repeat EKG ordered. The patient's EEG was ordered and done according to the dictation note. The patient is on heart healthy diet, GABINO stockings, SCDs, out of bed, physical therapy, occupational therapy. At present, the patient is awaiting parts counterman placement versus subacute rehab placement. form worker has met with the patient and the son. Family is looking for subacute into parts counterman care. Dictated and electronically signed, not read. Byron Courtney MD MTDD
[2017-03-19] MEDS: Levothyroxine 25 MCG TAB PO SCH (05:33)
[2017-03-19] MEDS: Insulin Reg-LOW-Coverage SC SCH ×4 (07:57→21:54)
[2017-03-19 07:59] LABS: BASO # 0.03 K/mm3 (0.0-2.0); BASO % 0.3 % (0.0-3.0); EOS # 0.2 (0.0-0.7); EOS % 1.9 % (1.5-5.0); GRAN # 5.61 (1.4-6.5); GRAN % 58.3 % (50.0-68.0); HEMATOCRIT 36.4 % (36.0-48.0); LYMPH # 2.9 (1.2-3.4); LYMPH % 30.3 % (22.0-35.0); MEAN CELL VOLUME 90.5 fl (80.0-105.0); MEAN CORPUSCULAR HEMOGLOBIN 30.3 pg (25.0-35.0); MEAN CORPUSCULAR HGB CONC 33.5 g/dl (31.0-37.0); MEAN PLATELET VOLUME 11.6 fl (7.0-11.0); MONO # 0.9 (0.1-0.6); MONO % 9.2 % (1.0-6.0); RED CELL DISTRIBUTION WIDTH 15.4 % (11.5-14.5); WHITE BLOOD COUNT 9.6 10^3/ul (4.5-11.0)
[2017-03-19 08:14] LABS: ALB/GLOB RATIO 1.2 (1.1-1.8); ALKALINE PHOSPHATASE 94 U/L (38-133); ALT/SGPT 34 U/L (7-56); AST/SGOT 30 U/L (15-39); BILIRUBIN,TOTAL 0.6 mg/dL (0.2-1.3); BLOOD UREA NITROGEN 17 mg/dL (7-21); CALCIUM 8.9 mg/dL (8.4-10.5); CARBON DIOXIDE 27 mmol/L (21-33); CHLORIDE 105 mmol/L (98-107); GFR AFRICAN-AMERICAN > 60; GLUCOSE,RANDOM 111 mg/dL (70-110); POTASSIUM 4.1 mmol/L (3.6-5.0); SODIUM 142 mmol/L (132-148); TOTAL PROTEIN 7.4 g/dL (5.8-8.3)
--- NOTE | 2017-03-19 09:40 | CARD ---
APPROVED REPORT EKG Measurement Heart [id number] <Conclusion> Normal sinus rhythm Normal ECG
[2017-03-19] MEDS: Enoxaparin 40 mg Syringe SC SCH (10:07)
[2017-03-19] MEDS: Multivitamin Therapeutic Tab PO SCH (10:08)
[2017-03-19] MEDS: POLYETHYLENE GLYCOL 3350 17 GM/Dose PACKET PO SCH (10:09)
[2017-03-19] MEDS: Pantoprazole 40 mg EC Tab PO SCH (10:11)
--- NOTE | 2017-03-19 12:34 | CP.PCM.PN ---
<Liya Glaser - Last Filed: 03/20/17 06:08> Subjective - Date & Time of Evaluation Date of Evaluation: 03/19/17 Time of Evaluation: 10:00 - Subjective Subjective: Internal medicine progress note for Dr. Sammie Glaser, PGY-1 Pt S & E at bedside this AM. Pt w/o complaints overnight. Right sided shaking decreased. Denies N/V/F/C, SOB , CP, KWONG, ab pain. Is tolerating diet. Objective - Vital Signs/Intake and Output Vital Signs (last 24 hours): Temp Pulse Resp BP Pulse Ox 98.7 F 64 18 176/99 H 99 03/19/17 07:00 03/19/17 10:11 03/19/17 07:00 03/19/17 10:11 03/19/17 07:00 Intake and Output: 03/19/17 03/19/17 06:59 18:59 Intake Total 900 640 Balance 900 640 - Medications Medications: Current Medications Acetaminophen (Tylenol 325mg Tab) 650 mg PO Q6H PRN PRN Reason: Pain, moderate (4-7) Last Admin: 03/17/17 21:53 Dose: 650 mg Aspirin (Ecotrin) 81 mg PO DAILY [facility] Last Admin: 03/19/17 10:08 Dose: 81 mg Atorvastatin Calcium (Lipitor) 40 mg PO DIN [facility] Last Admin: 03/18/17 16:49 Dose: 40 mg Clonazepam (Klonopin) 0.5 mg PO DAILY DEVIN PRN Reason: Protocol Last Admin: 03/19/17 10:08 Dose: 0.5 mg Clonidine HCl (Catapres) 0.1 mg PO Q6H PRN PRN Reason: Systolic Blood Pressure Last Admin: 03/19/17 10:11 Dose: 0.1 mg Donepezil HCl (Aricept) 5 mg PO HS [facility] Last Admin: 03/18/17 21:41 Dose: 5 mg Enoxaparin Sodium (Lovenox) 40 mg SC DAILY [facility] PRN Reason: Protocol Last Admin: 03/19/17 10:07 Dose: 40 mg Escitalopram Oxalate (Lexapro) 20 mg PO DAILY [facility] Last Admin: 03/19/17 10:09 Dose: 20 mg Insulin Human Regular (Humulin R Low) 0 units SC ACHS [facility] PRN Reason: Protocol Last Admin: 03/19/17 11:34 Dose: Not Given Lactobacillus Acidophilus (Bacid Acidophilus) 1 cap PO BID [facility] Levothyroxine Sodium (Synthroid) 25 mcg PO 0600 [facility] Last Admin: 03/19/17 05:33 Dose: 25 mcg Losartan Potassium (Cozaar) 100 mg PO DAILY [facility] Last Admin: 03/19/17 10:08 Dose: 100 mg Metoprolol Tartrate (Lopressor) 25 mg PO DAILY [facility] Last Admin: 03/19/17 10:08 Dose: 25 mg Multivitamins (Thera Tab) 1 tab PO DAILY [facility] Last Admin: 03/19/17 10:08 Dose: 1 tab Pantoprazole Sodium (Protonix Ec Tab) 40 mg PO DAILY [facility] Last Admin: 03/19/17 10:11 Dose: 40 mg Perphenazine (Perphenazine) 8 mg PO BID [facility] Last Admin: 03/19/17 10:08 Dose: 8 mg Trazodone HCl (Desyrel) 100 mg PO HS [facility] Last Admin: 03/18/17 21:41 Dose: 100 mg - Labs Labs: 03/19/17 07:40 03/19/17 07:40 PT 11.1 Seconds (9.9-11.8) 03/16/17 11:45 INR 1.03 (0.93-1.08) 03/16/17 11:45 APTT 27.2 Seconds (23.7-30.8) 03/16/17 11:45 - Constitutional Appears: Non-toxic, No Acute Distress - Head Exam Head Exam: ATRAUMATIC, NORMAL INSPECTION, NORMOCEPHALIC - Eye Exam Eye Exam: EOMI, Normal appearance - ENT Exam ENT Exam: Mucous Membranes Moist, Normal Exam - Neck Exam Neck Exam: Normal Inspection - Respiratory Exam Respiratory Exam: Clear to Ausculation Bilateral, NORMAL BREATHING PATTERN - Cardiovascular Exam Cardiovascular Exam: REGULAR RHYTHM, +S1, +S2 - GI/Abdominal Exam GI & Abdominal Exam: Soft, Normal Bowel Sounds. absent: Tenderness - Extremities Exam Extremities Exam: Normal Inspection. absent: Pedal Edema - Neurological Exam Neurological Exam: Alert, Awake, Oriented x3 - Psychiatric Exam Psychiatric exam: Normal Affect, Normal Mood - Skin Skin Exam: Dry, Intact, Normal Color, Warm Assessment and Plan - Assessment and Plan (Free Text) Assessment: 71 F with a pMHx of HTN, DM, alzheimers dementia and R breast Ca s/p resection admitted for uncontrolled HTN and Chest pain, stable, awaiting placement at LTAC. Plan: Diarrhea Lactobacillus D/c'd Miralax FU C diff study Monitor Chest pain- resolved No EKG changes Trops neg x 4 A1c 6.1 CKP WNL folate b12 wnl Cont home meds: Lipitor Cardiology following, cont medical management HTN Hypertensive overnight Cont home med: Lisinopril, lopressor clonidine PRN Monitor DM ISS Accuchecks Diabetic/HHD Hx of Alzheimer's dementia MRI althea neg FU EEG report-pending Neuro following -Aricept 5mg daily, PT for gait/balance Psych following- Trilafon increased to 8mg BID Hypothyroidism FT4 1.2 TSH 2.74 T4 7.8 Cont home med: Synthyroid Depression/insomnia Cont home med: Lexapro, trazodone, clonazepam GI/DVT ppx Protonix Lovenox Dispo PT OOBTC Ambulate with assistance D/c to LTAC in AM DW attending <Byron Courtney U - Last Filed: 04/08/17 22:13> Objective - Vital Signs/Intake and Output Vital Signs (last 24 hours): Temp Pulse Resp BP Pulse Ox 98.2 F 66 20 116/69 95 03/20/17 07:40 03/20/17 07:40 03/20/17 07:40 03/20/17 10:22 03/20/17 07:40 - Labs Labs: 03/19/17 07:40 03/19/17 07:40 PT 11.1 Seconds (9.9-11.8) 03/16/17 11:45 INR 1.03 (0.93-1.08) 03/16/17 11:45 APTT 27.2 Seconds (23.7-30.8) 03/16/17 11:45 Attending/Attestation - Attestation I have personally seen and examined this patient.: Yes I have fully participated in the care of the patient.: Yes I have reviewed all pertinent clinical information, including history, physical exam and plan: Yes
--- NOTE | 2017-03-19 13:06 | PN ---
DATE: 03/19/2017 CARDIOLOGY FOLLOWUP SUBJECTIVE: The patient is in bed complaining of lower back pain. PHYSICAL EXAMINATION: VITAL SIGNS: Blood pressure varies from 155 to 176 systolic, heart rate in the 60s. NECK: Negative JVD. LUNGS: Without rales. HEART: S1 and S2. EXTREMITIES: Without edema.. LABORATORY DATA: Hemoglobin is 12. Chemistries, glucose is 111. IMPRESSION: 1. Resolution of chest pain. 2. No evidence for acute coronary syndrome. 3. Hypertension. 4. Hypercholesterolemia. 5. History of Alzheimer's. 6. History of dementia. PLAN: Given these findings, we will continue on her losartan as well as her clonidine for blood pressure control. Ferny Marquez MD
--- NOTE | 2017-03-19 16:18 | PN ---
DATE: 03/19/2017 Patient is seen in room 572, bed 2. SUBJECTIVE: The patient appears to be comfortable, does not appear to be in any distress. Overnight nurse's notes were reviewed. The patient required minimal assistance. PHYSICAL EXAMINATION: VITAL SIGNS: T-max afebrile, heart rate 64, 63, 62, blood pressure 176/99, 99/59, 155/88, 168/84, 164/97, respiration 18-20, O2 sat 99 to mid 90s to high 90s. HEENT: Head is normocephalic and atraumatic. Shows pink conjunctivae. Anicteric sclerae. No oropharyngeal lesion. NECK: No neck rigidity. CHEST: Symmetrical. LUNGS: Shows no rales, crackles or wheezing. CARDIOVASCULAR: S1, S2, regular rhythm. ABDOMEN: Soft. Positive bowel sound. GENITALIA: Female. RECTAL: Deferred. EXTREMITIES: Shows no pitting edema. No calf pain. No Homans' sign. Gait examination is not tested. NEUROLOGIC: The patient is alert, awake, responsive. MUSCULOSKELETAL: Shows a body mass index of 34. DIAGNOSTIC: On 03/19/2017; WBC 9.6, hemoglobin/hematocrit 12.2/36.4, platelet 200. Sodium 142, potassium 4.1, chloride 105, CO2 of 27, anion gap 14, BUN 17, creatinine 0.8, GFR greater than 60. Glucose 111, 110, 120. Calcium 8.9. LFTs are normal. An MRI of the brain noted. IMPRESSION: 1. Chest pain, etiology undetermined and atypical chest pain. 2. Most likely Alzheimer's dementia. 3. Questionable Parkinsonism. 4. Questionable Parkinson's. 5. Hypertension with episodic hypotension, asymptomatic. 6. Gait dysfunction. 7. Obesity. 8. History of diabetes mellitus with hemoglobin A1c of 6.1. 9. History of hypothyroidism. 1. Chest pain, atypical. 2. Uncontrolled hypertension. 3. Anxiety disorder. 4. Transient hypoxemia. 5. Mild normocytic anemia. 6. Questionable diabetes with prediabetes and hemoglobin A1c of 6.1. 7. Obesity with elevated body mass index of 34.5. 8. Left hemidiaphragm focal eventration. 9. Sinus bradycardia. 10. History of hypothyroidism. 11. Paranoia. 12. Schizoaffective disorder versus schizophrenia. 13. History of Alzheimer's dementia. 14. History of psychiatric inpatient hospitalization. 15. Questionable paranoid disorder. 16. History of depression. 17. History of dementia. 18. Depression. 19. Constipation. 20. Hypothyroidism. 1. Chest pain, etiology undetermined. 2. Transiently uncontrolled hypertension. 3. History of Alzheimer's dementia. 4. History of depression, history of insomnia, history of hypothyroidism, history of hypertension, and history of dyslipidemia. 5. Normocytic anemia. 6. History of obesity. 7. History of anxiety. 1. Chest pain, atypical. 2. Uncontrolled hypertension. 3. Anxiety disorder. 4. Transient hypoxemia. 5. Mild normocytic anemia. 6. Questionable diabetes with prediabetes and hemoglobin A1c of 6.1. 7. Obesity with elevated body mass index of 34.5. 8. Left hemidiaphragm focal eventration. 9. Sinus bradycardia. 10. History of hypothyroidism. 11. Paranoia. 12. Schizoaffective disorder versus schizophrenia. 13. History of Alzheimer's dementia. 14. History of psychiatric inpatient hospitalization. 15. Questionable paranoid disorder. 16. History of depression. 17. History of dementia. 18. Depression. 19. Constipation. 20. Hypothyroidism. 1. Chest pain, etiology undetermined. 2. Transiently uncontrolled hypertension. 3. History of Alzheimer's dementia. 4. History of depression, history of insomnia, history of hypothyroidism, history of hypertension, and history of dyslipidemia. 5. Normocytic anemia. 6. History of obesity. 7. History of anxiety. 1. Chest pain, etiology undetermined. 2. Uncontrolled hypertension. 3. Possible anxiety disorder. 4. Mild normocytic anemia. 5. Prediabetes. 6. Left hemidiaphragm eventration. 7. History of dyslipidemia. 8. History of hypertension. 9. History of type II diabetes mellitus. 10. History of constipation. 11. History of gait dysfunction. 12. History of Alzheimer's dementia. 13. History of depression. 1. Chest pain, etiology undetermined. 2. Transiently uncontrolled hypertension. 3. History of Alzheimer's dementia. 4. History of depression, history of insomnia, history of hypothyroidism, history of hypertension, and history of dyslipidemia. 5. Normocytic anemia. 6. History of obesity. 7. History of anxiety. PLAN: At this time, the patient's only diagnostic result which is pending is EEG. Once the patient is cleared from the EEG point of view. The patient's family has been requesting subacute rehab versus long-term placement. Case has been referred to social media strategist case management for discharge to subacute rehab/long-term placement. The patient otherwise is medically stable for discharge. The patient's current medications Aricept 5 mg at bedtime, Bacid 1 capsule twice a day, clonidine 0.1 mg q. 6 p.r.n., Cozaar 100 mg daily, trazodone 100 mg at bedtime, Ecotrin 81 mg daily, regular insulin low-dose sliding scale coverage, Klonopin 0.5 mg daily, Lexapro 20 mg daily, Lipitor 40 mg daily, Lopressor 25 mg daily, Lovenox 40 mg subcu daily, perphenazine 8 mg twice a day, Protonix 40 mg daily, Synthroid 25 mcg daily, multivitamin 1 tablet daily, Tylenol p.r.n. EEG report pending. Out of bed and stockings, occupational therapy, occupational therapy, ambulation therapy, gait training ordered. Dictated and electronically not signed, not read. Byron Courtney MD LNYN
[2017-03-19] MEDS: Lactobacillus Acidophilus 500 MU Cap PO SCH (17:03)
--- NOTE | 2017-03-19 17:24 | PN ---
SUBJECTIVE: The patient was followed up today. The does not have POA. The patient was evaluated by neurologist yesterday and had an brain MRI which showed no acute changes. As per Dr. Sandoval, neurologist, the patient has Alzheimer's dementia and if the patient would have Parkinson's symptoms in the future it could be related to antipsychotic drugs. The patient presented to be alert, pleasant, tearful. The patient said that her family cannot take care of her at present moment. The patient also said that they have no other choice. The patient feels anxious about the situation. The patient denied hearing voices, denied seeing things, denied thoughts of killing herself or others. As per report from the nursing staff, the patient is complaining with the medications not behavioral issues. PHYSICAL EXAMINATION VITAL SIGNS: Reviewed. Temperature 98, pulse is 62, blood pressure 147/87, respirations 18, oxygen saturation is 98%. MEDICATIONS: Reviewed. Tylenol, aspirin, Lipitor, Klonopin 0.5 mg daily, may be will increase the dose to twice a day. The patient also was started on Aricept, perphenazine was increased to 8 mg twice a day. The patient is also on Lexapro. LABORATORY DATA: Labs were reviewed. Most recent was from today. MENTAL STATUS EXAMINATION: The patient appears to be alert, anxious, tearful. Mood described as "I feel anxious". Affect was tearful. Mood congruent. The patient seems to be relatively goal directed thought process. Thought content, the patient denied visual, auditory or tactile hallucinations. Denied paranoid ideation. The patient denied thoughts of harming herself or others. Denies intent or plans. The patient does not present to be psychotic. Insight and judgment are limited. Impulses are well controlled. IMPRESSION: The patient has history of schizoaffective disorder most likely. The patient also has history of Alzheimer dementia. The patient has multiple medical issues, please see medical team notes for more detailed information. PLAN: Continue current management. Trilafon was increased yesterday. This insurance underwriter will increase the Klonopin today. The patient is on Lexapro, which will be continued. As per history, the patient does not have POA. The patient may decision for herself at present moment. lay out worker is involved. Case management also involved. As per medical team notes, the patient was referred to transitional care unit. We will follow up and advise accordingly. Thank you very much for letting me to participate in care of your patient. Kourtney George MD
--- NOTE | 2017-03-19 18:55 | PN ---
SUBJECTIVE: The patient is lying on the bed, in no acute distress. Denies having any headache or dizziness. PHYSICAL EXAMINATION: VITAL SIGNS: Her blood pressure is 147/87, heart rate is 62 per minute, breathing at the rate of 16 per minute and temperature is 98 degree Fahrenheit. HEENT EXAM: Head is normocephalic and atraumatic. NECK: Supple. There are no carotid bruits. LUNGS: Clear. CARDIOVASCULAR EXAM: S1 and S2, audible. No murmurs. ABDOMEN: Soft and nontender. Bowel sounds are present. NEUROLOGICAL EXAM: Mental Status: The patient is awake, alert, oriented to place as hospital, year as 2017. She does not remember the name of the President, President is Didier. She follows simple commands. Cranial Nerve Examination: Pupils are 3 mm bilaterally, reactive to light. Visual gomez are full. Extraocular movements are intact. There is no facial asymmetry. She is moving all 4 extremities symmetrically. Plantars downgoing bilaterally. LABORATORY DATA: Reviewed, shows WBC of 9.6, hemoglobin of 12.2, hematocrit of 36.4 and platelets of 200. Her sodium is 142, potassium 4.1, chloride of 105, carbon dioxide content of 27, BUN of 17, creatinine 0.8 and glucose of 111. IMPRESSION: 1. Mild dementia, likely of Alzheimer's type. 2. Parkinsonian features which are likely secondary to her prolonged use of antipsychotic medications. RECOMMENDATIONS: 1. The patient had an electroencephalogram which is normal. 2. The patient to be continued on Aricept. 3. The patient is neurologically stable and clear for discharge. 4. No further neurological recommendations at present except the patient's dose of Aricept to be increased to 10 mg after 4 weeks. Thank you for the opportunity to participate in the care of this patient. Marla Sandoval MD
[2017-03-20] MEDS: Levothyroxine 25 MCG TAB PO SCH (05:20)
[2017-03-20 07:41] VITALS: PULSE 66; RESP 20; TEMP 98.2; O2SAT 95
--- NOTE | 2017-03-20 08:18 | CP.PCM.PN ---
Subjective - Date & Time of Evaluation Date of Evaluation: 03/20/17 Time of Evaluation: 07:45 - Subjective Subjective: Patient is seen this morning in room 572 bed 2. She denies chest pain. She complains of aches and pains of her legs and hands. Objective - Vital Signs/Intake and Output Vital Signs (last 24 hours): Temp Pulse Resp BP Pulse Ox 98.2 F 66 20 140/63 95 03/20/17 07:40 03/20/17 07:40 03/20/17 07:40 03/20/17 07:40 03/20/17 07:40 Intake and Output: 03/20/17 03/20/17 06:59 18:59 Intake Total 960 Balance 960 - Medications Medications: Current Medications Acetaminophen (Tylenol 325mg Tab) 650 mg PO Q6H PRN PRN Reason: Pain, moderate (4-7) Last Admin: 03/17/17 21:53 Dose: 650 mg Aspirin (Ecotrin) 81 mg PO DAILY [facility] Last Admin: 03/19/17 10:08 Dose: 81 mg Atorvastatin Calcium (Lipitor) 40 mg PO DIN [facility] Last Admin: 03/19/17 17:02 Dose: 40 mg Clonazepam (Klonopin) 0.5 mg PO BID [facility] PRN Reason: Protocol Last Admin: 03/19/17 17:02 Dose: 0.5 mg Clonidine HCl (Catapres) 0.1 mg PO Q6H PRN PRN Reason: Systolic Blood Pressure Last Admin: 03/19/17 10:11 Dose: 0.1 mg Donepezil HCl (Aricept) 5 mg PO HS [facility] Last Admin: 03/19/17 21:56 Dose: 5 mg Enoxaparin Sodium (Lovenox) 40 mg SC DAILY [facility] PRN Reason: Protocol Last Admin: 03/19/17 10:07 Dose: 40 mg Escitalopram Oxalate (Lexapro) 20 mg PO DAILY [facility] Last Admin: 03/19/17 10:09 Dose: 20 mg Insulin Human Regular (Humulin R Low) 0 units SC ACHS [facility] PRN Reason: Protocol Last Admin: 03/19/17 21:54 Dose: Not Given Lactobacillus Acidophilus (Bacid Acidophilus) 1 cap PO BID [facility] Last Admin: 03/19/17 17:03 Dose: 1 cap Levothyroxine Sodium (Synthroid) 25 mcg PO 0600 [facility] [place] Last Admin: 03/20/17 05:20 Dose: 25 mcg Losartan Potassium (Cozaar) 100 mg PO DAILY [facility] [place] Last Admin: 03/19/17 10:08 Dose: 100 mg Metoprolol Tartrate (Lopressor) 25 mg PO DAILY [facility] Last Admin: 03/19/17 10:08 Dose: 25 mg Multivitamins (Thera Tab) 1 tab PO DAILY [facility] Last Admin: 03/19/17 10:08 Dose: 1 tab Pantoprazole Sodium (Protonix Ec Tab) 40 mg PO DAILY [facility] [place] Last Admin: 03/19/17 10:11 Dose: 40 mg Perphenazine (Perphenazine) 8 mg PO BID [facility] Last Admin: 03/19/17 17:03 Dose: 8 mg Trazodone HCl (Desyrel) 100 mg PO HS [facility] Last Admin: 03/19/17 21:56 Dose: 100 mg - Labs Labs: 03/19/17 07:40 03/19/17 07:40 PT 11.1 Seconds (9.9-11.8) 03/16/17 11:45 INR 1.03 (0.93-1.08) 03/16/17 11:45 APTT 27.2 Seconds (23.7-30.8) 03/16/17 11:45 - Constitutional Appears: No Acute Distress - Head Exam Head Exam: ATRAUMATIC, NORMOCEPHALIC - Respiratory Exam Respiratory Exam: Clear to Ausculation Bilateral, NORMAL BREATHING PATTERN - Cardiovascular Exam Cardiovascular Exam: +S1, +S2 - GI/Abdominal Exam GI & Abdominal Exam: Soft, Normal Bowel Sounds. absent: Tenderness - Neurological Exam Neurological Exam: Alert, Awake Assessment and Plan - Assessment and Plan (Free Text) Assessment: Atypical chest pain dementia HTN Diabetes mellitus Hypothyroidism Plan: Patient is complaining of arthritis pains. She denies chest pain. Patient was evaluated by neurology and cardiology. No acute coronary syndrome EEG normal. continue Aricept. Physical therapy awaiting [facility]
--- NOTE | 2017-03-20 08:37 | EEG ---
INTRODUCTION: This is a digitally recorded EEG monitoring using standard EEG montages. BACKGROUND RHYTHM: The EEG shows a background activity of 8 Hertz alpha activity in parieto-occipital region. The EEG activity is bilaterally symmetrical and synchronous. There is attenuation of the background activity on eye opening. Moderate amount of myogenic artifact noticed in this EEG recording. ABNORMAL POTENTIALS: No spike, sharp waves or focal slowing was seen. Photic stimulation and hyperventilation: Photic stimulation did not reveal any abnormality. Hyperventilation was not performed. IMPRESSION: Normal EEG. No epileptiform activity seen in this EEG recording. Marla Sandoval MD
[2017-03-20] MEDS: Insulin Reg-LOW-Coverage SC SCH (08:54)
[2017-03-20] MEDS: Lactobacillus Acidophilus 500 MU Cap PO SCH (10:21)
[2017-03-20] MEDS: Pantoprazole 40 mg EC Tab PO SCH (10:23)
[2017-03-20] MEDS: Enoxaparin 40 mg Syringe SC SCH (10:23)
[2017-03-20] MEDS: Multivitamin Therapeutic Tab PO SCH (10:23)
[2017-03-20 10:26] VITALS: BP 116/69
--- NOTE | 2017-03-20 11:08 | CP.PCM.DIS ---
Provider - Provider Date of Admission: 03/17/17 11:32 Attending physician: Byron Courtney MD Primary care physician: NO PRIMARY CARE PROVIDER Consults: Cardio: Dr. Marquez Psych: Dr. Oconnell Neuro: Dr. Sandoval Time Spent in preparation of Discharge (in minutes): 45 Hospital Course - Lab Results Lab Results: Most Recent Lab Values WBC 9.6 10^3/ul (4.5-11.0) 03/19/17 07:40 RBC 4.02 10^6/uL (3.5-6.1) 03/19/17 07:40 Hgb 12.2 g/dL (12.0-16.0) 03/19/17 07:40 Hct 36.4 % (36.0-48.0) 03/19/17 07:40 MCV 90.5 fl (80.0-105.0) 03/19/17 07:40 MCH 30.3 pg (25.0-35.0) 03/19/17 07:40 MCHC 33.5 g/dl (31.0-37.0) 03/19/17 07:40 RDW 15.4 % (11.5-14.5) H 03/19/17 07:40 Plt Count 200 10^3/uL (120.0-450.0) 03/19/17 07:40 MPV 11.6 fl (7.0-11.0) H 03/19/17 07:40 Gran % 58.3 % (50.0-68.0) 03/19/17 07:40 Lymph % (Auto) 30.3 % (22.0-35.0) 03/19/17 07:40 [place] % (Auto) 9.2 % (1.0-6.0) H 03/19/17 07:40 Eos % (Auto) 1.9 % (1.5-5.0) 03/19/17 07:40 Baso % (Auto) 0.3 % (0.0-3.0) 03/19/17 07:40 Gran # 5.61 (1.4-6.5) 03/19/17 07:40 Lymph # 2.9 (1.2-3.4) 03/19/17 07:40 [place] # 0.9 (0.1-0.6) H 03/19/17 07:40 Eos # 0.2 (0.0-0.7) 03/19/17 07:40 Baso # 0.03 K/mm3 (0.0-2.0) 03/19/17 07:40 Retic Count 1.19 % (0.5-1.5) 03/18/17 11:20 PT 11.1 Seconds (9.9-11.8) 03/16/17 11:45 INR 1.03 (0.93-1.08) 03/16/17 11:45 APTT 27.2 Seconds (23.7-30.8) 03/16/17 11:45 Sodium 142 mmol/L (132-148) 03/19/17 07:40 Potassium 4.1 mmol/L (3.6-5.0) 03/19/17 07:40 Chloride 105 mmol/L (98-107) 03/19/17 07:40 Carbon Dioxide 27 mmol/L (21-33) 03/19/17 07:40 Anion Gap 14 (10-20) 03/19/17 07:40 BUN 17 mg/dL (7-21) 03/19/17 07:40 Creatinine 0.8 mg/dL (0.5-1.4) 03/19/17 07:40 Est GFR ( Amer) > 60 03/19/17 07:40 Est GFR (Non-Af Amer) > 60 03/19/17 07:40 POC Glucose (mg/dL) 107 mg/dL (65-110) 03/19/17 21:37 Random Glucose 111 mg/dL (70-110) H 03/19/17 07:40 Hemoglobin A1c 6.1 % (4.2-6.5) 03/16/17 16:15 Calcium 8.9 mg/dL (8.4-10.5) 03/19/17 07:40 Iron 77 ug/dL (45-180) 03/18/17 11:20 TIBC 379 ug/dL (265-497) 03/18/17 11:20 % Saturation 20 % (20-55) 03/18/17 11:20 Transferrin 285.59 mg/dL (206-381) 03/18/17 11:20 Erythropoietin 3.4 mIU/mL (2.6-18.5) 03/18/17 11:20 Ferritin 37.1 ng/mL 03/18/17 11:20 Total Bilirubin 0.6 mg/dL (0.2-1.3) 03/19/17 07:40 AST 30 U/L (15-39) 03/19/17 07:40 ALT 34 U/L (7-56) 03/19/17 07:40 Alkaline Phosphatase 94 U/L (38-133) 03/19/17 07:40 Total Creatine Kinase 123 U/L (35-230) 03/16/17 23:59 Troponin I < 0.01 ng/mL 03/16/17 23:59 Total Protein 7.4 g/dL (5.8-8.3) 03/19/17 07:40 Albumin 4.1 g/dL (3.0-4.8) 03/19/17 07:40 Globulin 3.3 gm/dL 03/19/17 07:40 Albumin/Globulin Ratio 1.2 (1.1-1.8) 03/19/17 07:40 Triglycerides 34 mg/dL (35-160) L 03/16/17 16:15 Cholesterol 90 mg/dL (130-200) L 03/16/17 16:15 LDL Cholesterol Direct < 30 mg/dL (0-129) 03/16/17 16:15 HDL Cholesterol 55 mg/dL (29-60) 03/16/17 16:15 Lipase 66 U/L (23-300) 03/16/17 11:45 Vitamin B12 390 pg/mL (239-931) 03/17/17 11:00 Folate > 20.0 ng/mL 03/17/17 11:00 Free T4 1.20 ng/dL (0.78-2.19) 03/16/17 16:15 Thyroxine (T4) 7.8 ug/dL (5.5-11.0) 03/16/17 16:15 TSH 3rd Generation 2.74 mIU/mL (0.46-4.68) 03/16/17 16:15 Urine Opiates Screen Negative (NEGATIVE) 03/18/17 20:30 Urine Methadone Screen Negative (NEGATIVE) 03/18/17 20:30 Ur Barbiturates Screen Negative (NEGATIVE) 03/18/17 20:30 Ur Phencyclidine Scrn Negative (NEGATIVE) 03/18/17 20:30 Ur Amphetamines Screen Negative (NEGATIVE) 03/18/17 20:30 U Benzodiazepines Scrn Negative (NEGATIVE) 03/18/17 20:30 U Oth Cocaine Metabols Negative (NEGATIVE) 03/18/17 20:30 U Cannabinoids Screen Negative (NEGATIVE) 03/18/17 20:30 RPR Nonreactive (NONREACTIVE) 03/17/17 11:10 - Hospital Course Hospital Course: 71 YO F w/PMH sig for HTN, DM, Alzheimer's dementia, hx nephrolithiasis, R breast CA s/p surgery admitted for HTN and Chest pain x 2 days. Pt attends adult day care where VS are monitored- pt originally sent to ED 2/2 HTN. Pt reports 1 episode of Right sided chest pain - intermittent, moderate, "pressure ", with radiating to LUE. Pt was admitted for atypical chest pain, cardiology was consulted, Dr. Marquez, serial ekgs and troponins were trended - which resulted negative. Dr. Marquez recommended medical management with asa, lipitor, metoprolol, and clonidine prn. Pt's HTN continued to improve while admitted. Pt had questionable history of Alzheimers dementia, anxiety and depression, and due to pts behavior, Dr. Oconnell, psych was consulted. Dr. Oconnell recommended medical management with perphanazine, trazadone, klonopin, lexapro, and aricept. Neurology was also consulted to r/o any acute neurological pathology, EEG was performed and did not demonstrate any acute pathology. A MRI was obtained as well and also resulted without any acute intracranial pathology. Pt was experiencing diarrhea while inpatient, a cdiff cx was ordered. Pt was seen and examined at bedside today. Pt was resting comfortably and in no acute distress, and without any acute complaints at this time. No acute or adverse events overnight as per nursing staff. Pt is tolerating po intake, is moving bowel and bladder regularly and is ambulating with assistance. Pt family agreed to LTC at [facility]. Pt is to continue medical management there. Pt is to fu with PMD Dr. Courtney within 1 week. Discharge Exam - Head Exam Head Exam: ATRAUMATIC, NORMOCEPHALIC - Eye Exam Eye Exam: EOMI, Normal appearance, PERRL Pupil Exam: NORMAL ACCOMODATION, PERRL - ENT Exam ENT Exam: Mucous Membranes Moist - Respiratory Exam Respiratory Exam: Clear to PA & Lateral, NORMAL BREATHING PATTERN, UNREMARKABLE - Cardiovascular Exam Cardiovascular Exam: RRR, +S1, +S2 - GI/Abdominal Exam GI & Abdominal Exam: Normal Bowel Sounds, Soft. absent: Tenderness - Extremities Exam Extremities exam: normal inspection - Neurological Exam Neurological exam: Alert, CN II-XII Intact, Normal Gait, Oriented x3, Reflexes Normal - Psychiatric Exam Psychiatric exam: Normal Affect, Normal Mood - Skin Skin Exam: Dry, Intact, Normal Color, Warm Discharge Plan - Follow Up Plan Condition: FAIR Disposition: HOME/ ROUTINE Instructions: Chest Pain (ED) Additional Instructions: 1. Pt is to be dc to [facility] as per CM. 2. Pt is to continue medical management as ordered 3. Pt is to fu with PMD within 1 week 4. Pt is welcomed to return to [facility] ED if symptoms change or worsen. Referrals: Byron Courtney MD [Staff Provider] -
--- NOTE | 2017-03-20 16:09 | PN ---
SUBJECTIVE: The patient was followed up today. The patient presented to be alert, pleasant, cooperative. The patient since helping the patient to take a shower since they provide good care and good brooke for the [id number]. The patient seems to be happy today, smiled back to this marketing copywriter reported she woke up early in the morning time. The patient denied feeling depressed. At the same time, the patient is very concern to go to the half-way. This marketing copywriter assure the patient that she will go to subacute rehab. The patient verbalized understanding. No signs of psychosis. No agitation. No aggression. As per nursing report, the patient complaints of the medication. No signs of delusions. No signs of agitation. The patient is complaint had good appetite and sleep. No behavioural disturbances. PHYSICAL EXAMINATION: VITAL SIGNS: Temperature 98.2, pulse is 66, blood pressure 140/63, respirations 20, oxygen saturation is 95. MEDICATIONS: Reviewed. Tylenol, aspirin, Lipitor, Klonopin 0.5 mg twice a day; Catapres; Aricept 5 mg at the nighttime; Lovenox; Lexapro 20 mg daily; Humulin; Synthroid; Cozaar; Lopressor; multivitamin; Protonix; perphenazine 8 mg twice a day; trazodone 100 mg at the nighttime. The patient had electroencephalogram yesterday. Normal EEG. No epileptiform activity seen in the EEG recording. The patient was seen by Dr. Sandoval, neurologist; primary care physician. As per neurologist, mild dementia most likely Alzheimer's type; parkinsonian features which are likely secondary to her prolonged use of antipsychotic medications. Recommended the Aricept to be increase within 4 weeks. MENTAL STATUS EXAMINATION: The patient presented to be alert. The patient knows that she is in the hospital. The patient was able to recognize her [id number]. The patient also seems to be less anxious/depressed. Affect was more reactive. Mood congruent. Thought process seems to be more organized and goal directed. Thought content, the patient denies visual, auditory, or tactile hallucinations. Denied paranoid ideation. The patient denied thoughts of harming herself or others. Denies any intent or plan. Insight and judgement impaired due to dementia and impulses are well controlled. IMPRESSION: The patient has long history of schizoaffective disorder versus major depressive disorder with psychotic symptoms versus schizophrenia. The patient also was diagnosed with Alzheimer's dementia with behavioural disturbances and paranoid ideation. The patient also has some Parkinson's symptoms in the right upper extremities, and pill rolling movements. The patient also has history of diabetes as well as hypertension. PLAN: Continue current management. The patient was evaluated by social research assistant. Give referral for a subacute rehab. The patient tolerated medication well. No side effects observed or reported. The patient has some Parkinsonian's symptoms on upper extremity and this is not worsening. The patient had that even at the time of admission. Meanwhile, continue current management. There is no further recommendations. This marketing copywriter will sign off. The patient is to be followed up with psychiatrist in the facility within one week of admission to the subacute rehab. Discussed with the nursing staff. Discussed with the patient's [id number]. Thank you very much for letting me to participate in care of your patient. Kourtney George MD
--- NOTE | 2017-03-25 15:32 | CARD ---
APPROVED REPORT EXAM: Two-dimensional and M-mode echocardiogram with Doppler and color Doppler. INDICATION Hypertension/HCVD Chest Pain 2D DIMENSIONS Left Atrium (2D)4.3 (1.6-4.0cm)IVSd1.4 (0.7-1.1cm) LVDd4.4 (3.9-5.9cm)PWd1.4 (0.7-1.1cm) LVDs3.3 (2.5-4.0cm)FS (%) 25.3 % LVEF (%)50.2 (>50%) M-Mode DIMENSIONS Aortic Root3.20 (2.2-3.7cm)Aortic Cusp Exc.1.70 (1.5-2.0cm) Aortic Valve AoV Peak Uevbnopl171.0cm/Aimee Peak GR.9mmHgAI P 1/2 [id number] Mitral Valve MV E Jjdurcik47.0cm/sMV A Hfwewduy83.6cm/sE/A ratio0.8 TDI Lateral E' Peak V5.07cm/sMedial E' Peak V4.29cm/sE/Lateral E'16.0 E/Medial E'18.9 Pulmonary Valve PV Peak Zdczxlyj80.5cm/sPV Peak Grad.2mmHg Tricuspid Valve TR Peak Odqajpyq727gy/sRAP [id number] Peak Gr.23mmHg [id number] LEFT VENTRICLE There is mild concentric left ventricular hypertrophy. Low normal LV systolic function RIGHT VENTRICLE The right ventricle is normal size. ATRIA The left atrium is mildly dilated. The right atrium size is normal. AORTIC VALVE The aortic valve is thickened but opens well. There is mild to moderate aortic regurgitation. MITRAL VALVE The mitral valve is thickened but opens well. Mitral annular calcification is mild to moderate. TRICUSPID VALVE The tricuspid valve leaflets are thickened , but open well. There is mild to moderate tricuspid regurgitation. PULMONIC VALVE The pulmonic valve is mildly thickened. PERICARDIAL EFFUSION There is no pericardial effusion. <Conclusion> LVH with low normal LV systolic function DIlated LA MAC noted Mild to moderate AI Moderate TR Mildly elevated pulmonary pressures
== END 2017-03-20 16:31 | DRG 313 ==
LOC: ED 11:10 → ERH 13:33 → 2RNO 15:15 → OBSVTOIN 03-17 11:32 → 5RSO 03-17 16:10
PROVIDERS: ADMIT Internal Medicine; ATTEND Internal Medicine
DX: R07.89 Other chest pain (principal); Q79.1 Other congenital malformations of diaphragm; I95.9 Hypotension, unspecified; G20 Parkinson's disease; G30.9 Alzheimer's disease, unspecified; F02.80 Dementia in other diseases classified elsewhere, unspecified severity, without behavioral disturbance, psychotic disturbance, mood disturbance, and anxiety; D64.9 Anemia, unspecified; E11.9 Type 2 diabetes mellitus without complications; I10 Essential (primary) hypertension; R00.1 Bradycardia, unspecified; F25.9 Schizoaffective disorder, unspecified; E03.9 Hypothyroidism, unspecified; F31.9 Bipolar disorder, unspecified; F41.9 Anxiety disorder, unspecified; F22 Delusional disorders; E66.9 Obesity, unspecified; E78.00 Pure hypercholesterolemia, unspecified; E78.5 Hyperlipidemia, unspecified; G47.00 Insomnia, unspecified; K59.00 Constipation, unspecified; R09.02 Hypoxemia; Z68.34 Body mass index [BMI] 34.0-34.9, adult; Z79.82 Long term (current) use of aspirin; Z79.899 Other long term (current) drug therapy; Z85.3 Personal history of malignant neoplasm of breast; Z87.442 Personal history of urinary calculi; R40.2412 Glasgow coma scale score 13-15, at arrival to emergency department; Z90.49 Acquired absence of other specified parts of digestive tract; Z90.710 Acquired absence of both cervix and uterus; J30.2 Other seasonal allergic rhinitis; R19.7 Diarrhea, unspecified; M54.5 Low back pain; R26.9 Unspecified abnormalities of gait and mobility

== ENCOUNTER 2018-09-01 09:00 | Outpatient (CLI) | payer MEDICARE, MEDICAID | END 2018-09-01 09:01 | disposition home or self-care (01) | LOC: RAD 09:00 ==